=== PATIENT | male | born 1955 | race Caucasian/White ===

== ENCOUNTER 2020-08-01 10:30 | Day surgery (SDC) | payer OTHER ==
[~2020-08-01] VITALS: Ht 165.1 cm; Wt 88.4 kg
[2020-08-01] VITALS (9 sets, daily range): BP systolic 135–154; BP diastolic 86–109
[~2020-08-01 10:30] MED LIST: ALBU8.5H8 INH; CITA10TA9 PO; CYCL-1 PO; HYDR-4383 PO; NAPR-56 PO; ZOLP10TA PO; albuterol 2.5 MG/3 ML nebule NEB ONE; ceFAZolin 2gm in dextrose, iso 50 ML IV ONE; famotidine 20mg tablet PO ONE; ringers solution, lacted 1,000 ML IV SCH
[2020-08-01 13:01] LABS: BASOPHILS % (AUTO) 0.6 % (0-1); EOSINOPHILS # (AUTO) 0.2 X10'3 (0-0.9); EOSINOPHILS % (AUTO) 2.8 % (0-6); LYMPHOCYTES # (AUTO) 1.9 X10'3 (1.1-4.8); LYMPHOCYTES % (AUTO) 29.4 % (21-51); MEAN CORPUSCULAR HEMOGLOBIN 30.4 PG (27.0-31.0); MEAN CORPUSCULAR HGB CONC 33.9 g/dL (33.0-36.5); MEAN CORPUSCULAR VOLUME 89.7 FL (78-98); MEAN PLATELET VOLUME 7.3 FL (7.4-10.4); MONOCYTES # (AUTO) 0.5 X10'3 (0-0.9); MONOCYTES % (AUTO) 8.5 % (2-12); NEUTROPHILS # (AUTO) 3.8 X10'3 (1.8-7.7); NEUTROPHILS % (AUTO) 58.7 % (42-75); PRE OP HEMATOCRIT 45.9 % (42.0-52.0); PRE OP HEMOGLOBIN 15.5 g/dL (14.0-17.9); PRE OP PLATELET COUNT 313 X10'3 (140-440); RED BLOOD COUNT 5.12 X10'6 (4.70-6.10); RED CELL DISTRIBUTION WIDTH 12.7 % (11.5-14.5)
[2020-08-01 13:09] LABS: ALBUMIN 4.2 G/DL (3.4-5.0); ALBUMIN/GLOBULIN RATIO 1.3 (1.1-1.5); ALKALINE PHOSPHATASE 83 IU/L (46-116); BLOOD UREA NITROGEN 20 MG/DL (7-18); BUN/CREATININE RATIO 17.9 (5.4-32.0); CALCIUM 9.3 MG/DL (8.5-10.1); CHLORIDE 103 MMOL/L (99-107); CREATININE 1.12 MG/DL (0.60-1.10); PRE OP ALT 50 U/L (30-65); PRE OP ANION GAP 9 (8-16); PRE OP AST 19 U/L (10-37); PRE OP BILIRUB, TOTAL 0.7 MG/DL (0.0-1.0); PRE OP GLUCOSE 125 MG/DL (70-104); PRE OP POTASSIUM 4.7 MMOL/L (3.4-5.1); PRE OP SODIUM 139 MMOL/L (135-145); TOTAL CARBON DIOXIDE 26.8 MMOL/L (24-32); TOTAL PROTEIN 7.4 G/DL (6.4-8.2); eGFR 66 ML/MIN
[2020-08-01] MEDS ORDERED: BUPIVAcaine/PF 2.5 mg/ml (0.25%) 30ml vial ONE (13:17)
[2020-08-01] MEDS ORDERED: bacitracin 15gm ointment TP ONE (13:17)
[2020-08-01] MEDS ORDERED: midazolam 1 mg/ML 2ml injection ONE (13:33)
[2020-08-01] MEDS ORDERED: fentaNYL /PF 50mcg/ml 5ml ampule ONE (13:39)
[2020-08-01] MEDS ORDERED: HYDROmorphone/PF 0.2 MG/ML SYRINGE IV PRN ×2 (13:40)
[2020-08-01] MEDS ORDERED: morphine 2 MG/ML inj. syringe IV PRN (13:40)
[2020-08-01] MEDS ORDERED: acetaminophen 1,000mg/100ml IV 100 ML IV PRN (13:40)
[2020-08-01] MEDS ORDERED: hydrALAZINE 20mg/ml inj. IV PRN (13:40)
[2020-08-01] MEDS ORDERED: meperidine/PF 25mg/ml syringe IV PRN (13:40)
[2020-08-01] MEDS ORDERED: ondansetron/PF 4mg/2ml inj IV PRN (13:40)
[2020-08-01] MEDS ORDERED: proCHLORperazine 10 MG/2 ml inj IV PRN (13:40)
[2020-08-01] MEDS ORDERED: ringers solution, lacted 1,000 ML IV SCH (13:40)
[2020-08-01] MEDS ORDERED: labetalol 20mg/4ml (5mg/ml) syringe IV PRN (13:40)
[2020-08-01] MEDS ORDERED: morphine 4 MG/ML inj SYRINge IV PRN (13:40)
[2020-08-01] MEDS ORDERED: ALBUTEROL INHALER 1 PUFF/90 MCG INHALER IH ONE (13:56)
[2020-08-01] MEDS ORDERED: sevoflurane 250ml liquid IH ONE (13:56)
[2020-08-01] MEDS ORDERED: 0.9 % SODIUM CHLORIDE 10 ML VIAL ONE (14:26)
[2020-08-01] MEDS ORDERED: propofol inj 20 ML IV ONE (14:26)
[2020-08-01] MEDS ORDERED: LIDOcaine 2% (20mg/ml) 5ml vial ONE (14:26)
[2020-08-01] MEDS ORDERED: ondansetron/PF 4mg/2ml inj ONE (14:27)
[2020-08-01] MEDS ORDERED: dexamethasone sod phosphate 4mg/ml inj. ONE (14:27)
[2020-08-01] MEDS ORDERED: ePHEDrine 50MG/ML INJ. ONE (14:30)
[2020-08-01] MEDS ORDERED: phenylephrine 10mg/ml inj. ONE (15:22)
[2020-08-01] MEDS ORDERED: ROPIVAcaine 0.5% (5mg/ml) 30ml vial ONE (15:39)
[2020-08-01] MEDS ORDERED: LIDOcaine 1%/PF 5ML 10 MG/ML VIAL ONE (15:47)
[2020-08-01] MEDS ORDERED: HYDROmorphone 1 mg/ml syringe ONE (15:47)
--- NOTE | 2020-08-01 15:56 | NUR ---
Received from OR via [facility] , accompanied by Anesthesiologist JD and report given by Anesthesiolgist. 145/109 REPOSITIONED CUFF, RETOOK 154/96. PT. ALERT AND TALKING. DENIES PAIN AT THIS TIME. LR INFUSING IN R. WRIST IV 20 G AT 100 ML/HR, DRESSING CDI. O2 AT 10 L VIA FACE MASK. RT CALLED FOR BREATHING TX PER ANESTHESIA DUE TO HX OF ASTHMA. L. FOOT SPLINT CDI. LEG ELEVATED ABOVE HEART. Addendum: 08/01/20 at 1615 by Jeana Herrera RN Amended: Links added.
[2020-08-01] MEDS ORDERED: ipratropium/albuterol 3ml nebule NEB ONE (16:00)
--- NOTE | 2020-08-01 16:00 | NUR ---
RR AT 14, PT SLEEPING/ SNORING. MONITOR NOT CAPTURING RR ACCURATELY DUE TO SHALLOW BREATHS. Addendum: 08/01/20 at 1622 by Jeana Herrera RN Amended: Links added.
--- NOTE | 2020-08-01 16:23 | NUR ---
RT IN TO GIVE BREATHING TREATMENT. PT. TOLERATED WELL. PT. DROWSY. NEEDED TO BE AROUSED TO PARTICIPATE. RR EVEN AND UNLABORED. Addendum: 08/01/20 at 1624 by Jeana Herrera RN Amended: Links added.
--- NOTE | 2020-08-01 16:42 | NUR ---
PT. WAS REMINDED TO COUGH AND DEEP BREATH EVERY 10 MINUTES WHILE IN RECOVERY. Addendum: 08/01/20 at 1643 by Jeana Herrera RN Amended: Links added.
--- NOTE | 2020-08-01 17:06 | NUR ---
PT. DISCHARGED TO FRONT ENTRANCE VIA WC TO SPOUSE IN CAR ACCOMPANIED BY NURSE. VSS. OCCASIONAL NAUSEA NOTED. IV REMOVED. LEFT LE DRESSING CDI. INSTRUCTIONS GIVEN PT. VERBALIZED UNDERSTANDING. SPOUSE ALSO EXPLAINED INSTRUCTIONS AND STATED UNDERSTANDING. PT. DEMONSTRATED NWB STATUS TWICE DURING STAY IN PACU. DISCHARGE CRITERIA MET. DENIES PAIN. Addendum: 08/01/20 at 1722 by Jeana Herrera RN Amended: Links added.
== END 2020-08-01 17:06 | disposition home or self-care (01) ==
LOC: PAS 10:30
PROVIDERS: ATTEND Podiatrist Foot & Ankle Surgery
DX: S92.352A Displaced fracture of fifth metatarsal bone, left foot, initial encounter for closed fracture (principal); G89.18 Other acute postprocedural pain; F41.9 Anxiety disorder, unspecified; Z79.899 Other long term (current) drug therapy; Z98.890 Other specified postprocedural states; Z96.649 Presence of unspecified artificial hip joint; Z87.891 Personal history of nicotine dependence; Z85.46 Personal history of malignant neoplasm of prostate; Z86.19 Personal history of other infectious and parasitic diseases; Z72.89 Other problems related to lifestyle; Z20.822 Contact with and (suspected) exposure to COVID-19; Z80.9 Family history of malignant neoplasm, unspecified; W10.9XXA Fall (on) (from) unspecified stairs and steps, initial encounter; Y93.89 Activity, other specified; Y92.89 Other specified places as the place of occurrence of the external cause; Y99.8 Other external cause status
CPT/HCPCS: 28485; 36415; 64445; 73620; 76000; 76942; 80053; 85025; 87426; 93005; 94640; 94760; A6222; A6223; C1713; J1100; J1170; J2001; J2250; J2370; J2405; J2704; J3010; J3490; J7120; A4215; A4618; A6449; A7000; J2795